=== PATIENT | male | born 1965 | race Caucasian/White ===

== ENCOUNTER 2018-07-26 14:15 | Inpatient (IN) ==
[2018-07-26] MEDS ORDERED: ASPIRIN CHEW 324 MG PO STA (14:37)
[2018-07-26] MEDS ORDERED: ASPIRIN CHEW 324 MG ONE (14:38)
[2018-07-26] MEDS ORDERED: dilTIAZem HCl 125 MG in DEXTROSE 5% 100 ML IV SCH (14:45)
[2018-07-26] MEDS ORDERED: SODIUM CHLORIDE 0.9% 1000ML 1,000 ML IV SCH (14:45)
[2018-07-26] MEDS: dilTIAZem HCl 5 MG/ML 5 ML VIAL IV ONE ×2 (14:46→14:49)
[2018-07-26 15:02] LABS: Basophils # (auto) 0.02 K/uL (0-0.2); Basophils % (auto) 0.3 %; Eosinophils # (auto) 0.09 K/uL (0-0.5); Eosinophils % (auto) 1.4 %; Hemoglobin 13.4 g/dL (14.0-18.0); Immature Granulocytes # (auto) 0.01 K/uL (0.00-0.02); Immature Granulocytes % (auto) 0.2 %; Lymphocytes # (auto) 1.25 K/uL (1.2-3.4); Lymphocytes % (auto) 19.2 %; Mean Corpuscular Hgb Conc 32.7 g/dL (32-36); Mean Corpuscular Volume 88.4 fL (80-100); Mean Platelet Volume 10.5 fL (7.4-10.4); Monocytes # (auto) 0.76 K/uL (0.11-0.59); Monocytes % (auto) 11.7 %; Neutrophils # (auto) 4.39 K/uL (1.4-6.5); Neutrophils % (auto) 67.2 %; Platelet Count 245 K/uL (130-400); RDW Standard Deviation 45.3 fL (36.4-46.3); Red Blood Count 4.64 M/uL (4.7-6.1); White Blood Count 6.52 K/uL (4.8-10.8)
[2018-07-26 15:15] LABS: BUN Creatinine Ratio 20.3 (10-20); Calcium 8.4 mg/dl (8.5-10.1); Creatinine Clr Calc Pharmacy 100.3 ml/min; Est GFR (African American) 84.9; Est GFR (Non-African American) 73.3; Potassium 3.4 mmol/L (3.5-5.1)
--- NOTE | 2018-07-26 15:16 | XRay Report ---
XR chest 1V portable CLINICAL HISTORY: 52 years-old Male presenting with Chest Pain. TECHNIQUE: Portable upright AP view of the chest was obtained. COMPARISON: None. FINDINGS: Cardiac silhouette mildly enlarged. Mild pulmonary vascular prominence. No focal opacity. No large ef fusion or pneumothorax. Osseous structures normal. Upper abdomen normal. IMPRESSION: 1. Cardiomegaly with mild volume overload. No angelina pulmonary edema. Electronically signed by: Donnie Celaya M.D. 07/26/2018 3:15 PM
[2018-07-26 15:20] LABS: Troponin I 0.045 ng/ml (0-0.045)
[2018-07-26 15:27] LABS: INR 1.1 (0.9-1.1); Prothrombin Time 10.7 Seconds (9.0-12.0)
[2018-07-26] MEDS ORDERED: IOVERSOL 100ml IV PRN (15:49)
--- NOTE | 2018-07-26 16:01 | CT Scan Report ---
CT ANGIOGRAM OF THE CHEST CLINICAL HISTORY: Atypical chest pain. Possible pulmonary embolism. COMPARISON STUDY: Chest x-ray dated 07/26/2018 TECHNIQUE: Following the IV administration of 94 mL of Optiray-320, CT angiogram of the thorax was pe rformed from the thoracic inlet to the lung bases utilizing the pulmonary embolus protocol. Images ar e reviewed in the axial, sagittal, and coronal planes. IV contrast was administered without complicat ion. MIP imaging was performed. A dose lowering technique was utilized adhering to the principles of ALARA. CT DOSE: 579.06 mGycm FINDINGS: Mediastinal lymph nodes are the upper limits of normal in size. There is no pathologic axillary or hi lar lymphadenopathy. The ascending thoracic aorta measures 36 mm. There were no pulmonary artery filling defects to indicate acute pulmonary embolism. No pleural effusions are visualized. There is no evidence of focal pulmonary consolidation. There is a solid 4 mm right upper lobe pulmonary nodule as visualized in image #[id number] IMPRESSION: 1. No acute intrathoracic findings 2. No evidence of acute pulmonary embolism. No evidence of focal pulmonary consolidation. 3. Solid 4 mm right upper lobe pulmonary nodule. In a high risk patient, a 12 month follow-up is cons idered optional. Please refer to below summary of Fleischner criteria recommendations for follow-up of incidental CT n odules (Joshua Huang, Guidelines for management of small pulmonary nodules detected on CT scans: A sta tement from the Fleischner Society, Radiology 237: [phone].) SOLID NODULES Solitary nodule size: <6 mm * low risk patients: no follow-up needed * high risk patients: optional CT at 12 months Solitary nodule size: 6-8 mm * low risk patients: follow-up at 6-12 months, then consider further follow-up at 18-24 months * high risk patients: initial follow-up CT at 6-12 months and then at 18-24 months if no change Solitary nodule size: >8 mm * either low or high risk patients - consider follow-up CT at 3 months, and/or CT-PET, and/or biopsy Multiple nodules size: <6 mm * low risk patients: no routine follow-up * high risk patients: optional CT at 12 months Multiple nodules size: 6-8 mm * low risk patients: follow-up at 3-6 months, then consider further follow-up at 18-24 months * high risk patients: follow-up at 3-6 months, then at 18-24 months if no change Multiple nodules size: >8 mm * low risk patients: follow-up at 3-6 months, then consider further follow-up at 18-24 months * high risk patients: follow-up at 3-6 months, then at 18-24 months if no change Note: newly detected indeterminate nodule in persons 35 years of age or older. * low risk patients: minimal or absent history of smoking and/or other known risk factors * high risk patients: history of smoking or of other known risk factors (e.g. first degree relative with lung cancer, or exposure to asbestos, radon, uranium) * if a nodule up to 8 mm is partly solid or is ground glass further follow-up is required after 24 m [address] to exclude possible slow growing adenocarcinoma (CYNDI) SUBSOLID NODULES Solitary pure ground-glass nodule * nodule size <6 mm - no CT follow-up required * nodule size >=6 mm - follow-up CT at 6-12 months, then every 2 years until 5 years Solitary part-solid nodule * nodule size <6 mm - no CT follow-up required * nodule size >=6 mm - follow-up CT at 3-6 months. If unchanged, and solid component remains <6 mm, then annual follow-up for 5 years Multiple subsolid nodules * nodule size <6 mm - follow-up CT at 3-6 months, consider further follow-up at 2 and 4 years if sta ble * nodule size >=6 mm - follow-up CT at 3-6 months, subsequent management based on the most suspiciou s nodule(s) Electronically signed by: Will Negro M.D. 07/26/2018 3:59 PM
[2018-07-26] MEDS ORDERED: SODIUM CHLORIDE 0.9% 1000ML 1,000 ML IV ONE (16:11)
[2018-07-26] MEDS ORDERED: LORazepam 1 MG/2 ML VIAL IV STA (16:11)
--- NOTE | 2018-07-26 17:17 | History & Physical Report ---
Date of Service July 26, 2018 Assessment & Plan (1) Atrial fibrillation with RVR: New onset Possibly related to undx MILDRED No hx of sleep study Overnight pulse ox Will need formal sleep study as outpt Trop neg x1, serials pending ECHO pending Cardiology c/s pending CHADS-VASC score of 0, will hold on anticoagulation for now CTA neg for PE Continue cardizem (2) Abnormal CT scan of lunmm nodule noted on CT Per guidelines in a low risk pt there is no f/u indicated could consider f/u in 12 months (3) DVT prophylaxis: SCDs History of Present Illness Primary Care Provider: Maldonado Kern 52 y/o M who was sent here by PCP for new onset afib. Pt states that over the weekend he noted some palpitations and mild FRANK. This increased yesterday and he noted lightheadedness with the FRANK. No SOB at rest, but he was only able to walk short distances without FRANK onset. He made an appt for PCP today and EKG showed afib, which is a new issue for pt. Pt states that over the years he has had fleeting moments of palpitations that would resolve with rest. No FRANK or lightheadedness with this. Occurrence was very sporadic, maybe once every few months. No chest pain. He has been eating without issue. Pt denies fever, abd pain, n/v/c/d, LE pain or swelling. Pt does admit to snoring which has increased over the years. He is not sure if he wakes up with this, but he states that his frequently wakes him due to snoring. This is a regular occurrence. Pt with recent travel to [place] via plane. No issues with the flight. Allergies Allergy/AdvReac Type Severity Reaction Status Date / Time bee venom protein (honey bee) Allergy Intermediate Itchiness Verified 07/26/18 15:36 and hives Penicillins Allergy Mild Rash Verified 07/26/18 15:36 Home Medications Home Medications Medication Instructions Recorded Confirmed Type No Known Home Medications 07/26/18 07/26/18 History Past Med/Surg History Medical History No chronic diseases present Family History Other Afib Social History Feels Safe at Home: Yes Smoking Status: Never smoker Hx Alcohol Use: Yes Alcohol type: beer and wine Alcohol Intake Frequency Comment: 2 drinks/night with dinner most nights but not every night Hx Substance Use: No Review of Systems Pertinent positives and negatives reviewed in HPI--all others negative Physical Exam 2 Vital Signs (Past 24 Hours): Last Vital Signs Temp 36.9 C 07/26/18 14:23 Pulse 66 07/26/18 16:37 Resp 18 07/26/18 16:11 BP 100/75 07/26/18 16:37 Pulse Ox 99 07/26/18 16:37 Constitutional: WD/WN, vitals as above Eyes: normal visual marsh by confrontation and + anicteric sclerae Neck: normal visual inspection and trachea midline Respiratory: normal respiratory effort, lungs clear to auscultation Cardiovascular: Rate/Rhythm: regular rate and regular rhythm Gastrointestinal (Abdomen): Inspection/Auscultation: abdomen not distended Percussion/Palpation: abdomen soft; abdomen nontender Musculoskeletal: Head/Neck/Chest: normocephalic and head atraumatic negative for edema, peripheral pulses intact Skin: no rashes, warm and dry Neurologic: awake; not confused Speech / Cognition: normal speech Psychiatric: A+Ox3, euthymic affect Code Status & VTE Plan Code Status Full code VTE Prophylaxis Plan VTE Prophylaxis will be ordered: Yes
--- NOTE | 2018-07-26 17:19 | Emergency Department Note ---
Entered by Joana uDnham acting as a scribe for Ricardo Thomas History of Present Illness General Chief complaint: Cardiac Assessment Stated complaint: A FIB Time Seen by Provider: 07/26/18 14:28 Source: patient Mode of arrival: ambulatory Limitations: no limitations History of Present Illness Provider complaint: heart palpitations Onset (ago): day(s) (couple) Location: chest Pain Consistency: + other (persistent) Quality: + other (palpitations) Associated symptoms: + other (Associated symtoms: lightheadedness, resolved shortness of breath. Denies: chest pain, loss of consciousness) The patient is a 52 year old male who presents to the Emergency Room with complaints of persistent heart palpitations beginning a couple days ago. He reports today he was walking a short distance when he began feeling light headed and short of breath. The patient denies loss of consciousness. He denies any current chest pain or difficulty breathing. The patient notes he drove to [place], [place], and back 2 weeks ago. He denies any history of diagnosed heart problems. The patient denies illicit drug use, including cocaine. He notes he drinks 2 alcoholic drinks per night (1 beer, 1 glass of wine). Home Medications Home Medications Medication Instructions Recorded Confirmed Type No Known Home Medications 07/26/18 07/26/18 History Allergies Allergy/AdvReac Type Severity Reaction Status Date / Time bee venom protein (honey bee) Allergy Intermediate Itchiness Verified 07/26/18 15:36 and hives Penicillins Allergy Mild Rash Verified 07/26/18 15:36 Past Med/Surg History Medical History No chronic diseases present Social History Feels Safe at Home: Yes Smoking Status: Never smoker Hx Alcohol Use: Yes Alcohol type: beer and wine Alcohol Intake Frequency Comment: 2 drinks/night with dinner most nights but not every night Hx Substance Use: No Review of Systems See HPI for pertinent positives & negatives. and A total of 10 systems reviewed and were otherwise negative Physical Exam Vital Signs Vital Signs - 24 hr 07/26/18 14:23 07/26/18 14:54 07/26/18 15:01 Temperature 36.9 C Temperature Source Oral Sepsis Recent Fever Within 48 Hours No Sepsis New/Unexplained Change in Mental Status No Sepsis Action Taken by Nursing No Action Required Pulse Rate 80 Pulse Rate [Apical] 117 H Respiratory Rate 18 18 Respiratory Effort / Characteristics Non-Labored Respiratory Depth Normal Respiratory Pattern Blood Pressure 160/105 H Blood Pressure [Right Arm] 106/82 Blood Pressure Mean 123 Blood Pressure Mean [Right Arm] 90 Blood Pressure Position [Right Arm] Pulse Oximetry 99 98 Oxygen Delivery Method Room Air Room Air Room Air 07/26/18 15:19 07/26/18 16:01 07/26/18 16:11 Temperature Temperature Source Sepsis Recent Fever Within 48 Hours Sepsis New/Unexplained Change in Mental Status Sepsis Action Taken by Nursing Pulse Rate Pulse Rate [Apical] 127 H 138 H 66 Respiratory Rate 18 18 18 Respiratory Effort / Characteristics Non-Labored Spontaneous Non-Labored Spontaneous Non-Labored Spontaneous Respiratory Depth Normal Normal Normal Respiratory Pattern Regular Regular Regular Blood Pressure Blood Pressure [Right Arm] 109/80 99/66 L 102/74 Blood Pressure Mean Blood Pressure Mean [Right Arm] 89 77 83 Blood Pressure Position [Right Arm] Sitting Sitting Sitting Pulse Oximetry 99 97 97 Oxygen Delivery Method Room Air Room Air Room Air 07/26/18 16:37 Temperature Temperature Source Sepsis Recent Fever Within 48 Hours Sepsis New/Unexplained Change in Mental Status Sepsis Action Taken by Nursing Pulse Rate Pulse Rate [Apical] 66 Respiratory Rate Respiratory Effort / Characteristics Respiratory Depth Respiratory Pattern Blood Pressure Blood Pressure [Right Arm] 100/75 Blood Pressure Mean Blood Pressure Mean [Right Arm] 83 Blood Pressure Position [Right Arm] Pulse Oximetry 99 Oxygen Delivery Method Room Air GENERAL: He is oriented to person, place, and time. He appears well-developed and well-nourished. He does not appear distressed. HENT: Exam performed. Head: Normocephalic and atraumatic. Right Ear: External ear normal. No mastoid tenderness. Left Ear: External ear normal. No mastoid tenderness. Mouth/Throat: The oropharynx is clear and moist. No trismus in the jaw. No dental abscesses or uvula swelling. No oropharyngeal exudate or tonsillar abscesses. EYES: Conjunctivae and EOM are normal. Pupils are equal, round, and reactive to light. Right eye exhibits no discharge. Left eye exhibits no discharge. No scleral icterus. NECK: Normal range of motion. Neck supple. No JVD present. No spinous process tenderness present. No carotid bruit present. No rigidity. No tracheal deviation and normal range of motion present. No Brudzinski's sign and no Kernig 's sign noted. CV: Tachycardic rate, iregular rhythm, normal heart sounds and intact distal pulses. There is no peripheral edema. Palpable radial pulses bue. PULM/CHEST: Effort normal and breath sounds normal. No respiratory distress. No stridor. He has no wheezes. He has no rales. Chest Wall: He exhibits no tenderness. ABD: The abdomen is soft. Bowel sounds are normal. He has no distension. No mass is present. There is no tenderness. There is no rebound, no guarding, no Maravilla's sign and no tenderness at McBurney's point. Rovsig negative MUSC/SKEL: Normal range of motion. There is no peripheral edema, tenderness or deformity. LYMPH: No cervical adenopathy. NEURO: He is alert and oriented to person, place, and time. He has normal strength. No cranial nerve deficit or sensory deficit. Coordination and gait normal. GCS eye subscore is 4. GCS verbal subscore is 5. GCS motor subscore is 6. cerbellar tests wnl. SKIN: Skin is warm and dry. He is not diaphoretic. PSYCH: He has a normal mood and affect. His behavior is normal. Judgment and thought content normal. Course 1431: Past medical records reviewed. The patient was evaluated in room C10, and a complete history and physical examination were performed.Patient was found to be in Afib with RVR, 20 mg Cardizem bolus given. Patient continued to be in Afib with RVR, his ventricular rate improved on monitor from 150-180 to 120-140 after initial 20 mg bolus. He was given a subsequent 25 mg bolus of Cardizem, which improved heart rate to 80-110 on monitor. Cardizem drip will be started. [place]iv[place] patients recent history of travel and sudden onset of Afib, will conduct a CT of the chest. 1608: Vital signs stable on Cardizem drip. Labs within normal limits. CTA of chest shows no PE. CHADS score does not indicate need for anticoagulation with heparin. Patient given aspirin in ED and admitted into Dr. Jacobson service.I reviewed the patient's case with Dr. Jacobson, [facility] hospitalist. She will evaluate the patient for further management. 1616: While on Cardizem drip at 10 mg an hour the patient converted to a sinus rhythm. Repeat EKG showed sinus rhythm with rate of 69. ME QRS and QTc intervals within normal limits no ST elevation or ST depression. Patient be continued on Cardizem drip as blood pressure stable and tolerating well. Consultations Consultation #1: I reviewed the patient's case with Dr. Jacobson, [facility] hospitalist. She will evaluate the patient for further management. Time: 16:01 Administered Medications Diltiazem HCl 125 mg/ Dextrose 125 mls @ 5 mls/hr IV .Q24H ADY; Protocol Stop: 08/25/18 14:44 Last Titration: 07/26/18 15:36 Dose: 10 mg/hr, 10 mls/hr Admin: 07/26/18 15:00 Dose: 5 mg/hr, 5 mls/hr Ioversol (Optiray 320 100ml) 94 ml IV ONCE PRN PRN Reason: Interaction Checking Stop: 07/30/18 15:48 Last Admin: 07/26/18 15:50 Dose: 94 ml Discontinued Medications Aspirin (Aspirin) 324 mg PO NOW STA Stop: 07/26/18 14:38 Last Admin: 07/26/18 14:48 Dose: 324 mg Aspirin (Aspirin) Confirm Administered Dose 324 mg .ROUTE .STK-MED ONE Stop: 07/26/18 14:39 Last Admin: 07/26/18 14:49 Dose: Not Given Diltiazem HCl (Cardizem) Confirm Administered Dose 25 mg IV .STK-MED ONE Stop: 07/26/18 14:34 Last Admin: 07/26/18 14:49 Dose: 25 mg Admin: 07/26/18 14:46 Dose: 20 mg Sodium Chloride (Nss 1000ml) 1,000 mls @ 999 mls/hr IV .Q1H1M ADY Stop: 07/26/18 15:45 Last Infusion: 07/26/18 16:01 Dose: 0 mls/hr Admin: 07/26/18 14:49 Dose: 999 mls/hr Lorazepam (Ativan) 1 mg in 2 mls @ 2 mls/min IV NOW STA Stop: 07/26/18 16:12 Last Admin: 07/26/18 16:31 Dose: Not Given Sodium Chloride (Nss 1000ml) 1,000 mls @ 999 mls/hr IV .Q1H1M ONE Stop: 07/26/18 17:11 Last Admin: 07/26/18 16:31 Dose: 999 mls/hr Medical Decision Making Medical Records Attestation: I reviewed the patient's medical records. Home Medications Current Medication List: was personally reviewed by me Laboratory Data Attestation: I reviewed the patient's lab results. Result diagrams: 07/26/18 14:35 07/26/18 14:35 Lab Results 07/26/18 07/26/18 07/26/18 Range/Units 14:35 14:35 14:35 WBC 6.52 (4.8-10.8) K/uL RBC 4.64 L (4.7-6.1) M/uL Hgb 13.4 L (14.0-18.0) g/dL Hct 41.0 L (42-52) % MCV 88.4 (80-100) fL MCH 28.9 (25-34) pg MCHC 32.7 (32-36) g/dL RDW Std Deviation 45.3 (36.4-46.3) fL RDW Coeff of Kendra 14.0 (11.5-14.5) % Plt Count 245 (130-400) K/uL MPV 10.5 H (7.4-10.4) fL Immature Gran % (Auto) 0.2 % Neut % (Auto) 67.2 % Lymph % (Auto) 19.2 % [place] % (Auto) 11.7 % Eos % (Auto) 1.4 % Baso % (Auto) 0.3 % Immature Gran # (Auto) 0.01 (0.00-0.02) K/uL Neut # (Auto) 4.39 (1.4-6.5) K/uL Lymph # (Auto) 1.25 (1.2-3.4) K/uL [place] # (Auto) 0.76 H (0.11-0.59) K/uL Eos # (Auto) 0.09 (0-0.5) K/uL Baso # (Auto) 0.02 (0-0.2) K/uL PT 10.7 (9.0-12.0) Seconds INR 1.1 (0.9-1.1) APTT 26.0 (21.0-31.0) Seconds PTT Ratio 1.0 Sodium 138 (136-145) mmol/L Potassium 3.4 L (3.5-5.1) mmol/L Chloride 107 (98-107) mmol/L Carbon Dioxide 28 (21-32) mmol/L Anion Gap 3.0 (3-11) BUN 23 H (7-18) mg/dl Creatinine 1.15 (0.6-1.4) mg/dl Est Cr Clr Drug Dosing 100.3 ml/min Est GFR ( Amer) 84.9 Est GFR (Non-Af Amer) 73.3 BUN/Creatinine Ratio 20.3 H (10-20) Glucose 98 (70-99) mg/dl Calcium 8.4 L (8.5-10.1) mg/dl Troponin I 0.045 (0-0.045) ng/ml Lipase 138 (73-393) U/L Imaging Data Radiologist's Impression: Radiology results as stated below per my review and the radiologist's interpretation: XR chest 1V portable CLINICAL HISTORY: 52 years-old Male presenting with Chest Pain. TECHNIQUE: Portable upright AP view of the chest was obtained. COMPARISON: None. FINDINGS: Cardiac silhouette mildly enlarged. Mild pulmonary vascular prominence. No focal opacity. No large effusion or pneumothorax. Osseous structures normal. Upper abdomen normal. IMPRESSION: 1. Cardiomegaly with mild volume overload. No angelina pulmonary edema. Electronically signed by: Donnie Celaya M.D. 07/26/2018 3:[address] ANGIOGRAM OF THE CHEST CLINICAL HISTORY: Atypical chest pain. Possible pulmonary embolism. COMPARISON STUDY: Chest x-ray dated 07/26/2018 TECHNIQUE: Following the IV administration of 94 mL of Optiray-320, CT angiogram of the thorax was performed from the thoracic inlet to the lung bases utilizing the pulmonary embolus protocol. Images are reviewed in the axial, sagittal, and coronal planes. IV contrast was administered without complication. MIP imaging was performed. A dose lowering technique was utilized adhering to the principles of ALARA. CT DOSE: 579.06 mGycm FINDINGS: Mediastinal lymph nodes are the upper limits of normal in size. There is no pathologic axillary or hilar lymphadenopathy. The ascending thoracic aorta measures 36 mm. There were no pulmonary artery filling defects to indicate acute pulmonary embolism. No pleural effusions are visualized. There is no evidence of focal pulmonary consolidation. There is a solid 4 mm right upper lobe pulmonary nodule as visualized in image # [id number] IMPRESSION: 1. No acute intrathoracic findings 2. No evidence of acute pulmonary embolism. No evidence of focal pulmonary consolidation. 3. Solid 4 mm right upper lobe pulmonary nodule. In a high risk patient, a 12 month follow-up is considered optional. Please refer to below summary of Fleischner criteria recommendations for follow- up of incidental CT nodules (Joshua Huang, Guidelines for management of small pulmonary nodules detected on CT scans: A statement from the Fleischner Society , Radiology 237: [phone].) SOLID NODULES Solitary nodule size: <6 mm * low risk patients: no follow-up needed * high risk patients: optional CT at 12 months Solitary nodule size: 6-8 mm * low risk patients: follow-up at 6-12 months, then consider further follow- up at 18-24 months * high risk patients: initial follow-up CT at 6-12 months and then at 18-24 months if no change Solitary nodule size: >8 mm * either low or high risk patients - consider follow-up CT at 3 months, and/or CT-PET, and/or biopsy Multiple nodules size: <6 mm * low risk patients: no routine follow-up * high risk patients: optional CT at 12 months Multiple nodules size: 6-8 mm * low risk patients: follow-up at 3-6 months, then consider further follow-up at 18-24 months * high risk patients: follow-up at 3-6 months, then at 18-24 months if no change Multiple nodules size: >8 mm * low risk patients: follow-up at 3-6 months, then consider further follow-up at 18-24 months * high risk patients: follow-up at 3-6 months, then at 18-24 months if no change Note: newly detected indeterminate nodule in persons 35 years of age or older. * low risk patients: minimal or absent history of smoking and/or other known risk factors * high risk patients: history of smoking or of other known risk factors (e.g. first degree relative with lung cancer, or exposure to asbestos, radon, uranium) * if a nodule up to 8 mm is partly solid or is ground glass further follow-up is required after 24 months to exclude possible slow growing adenocarcinoma (CYNDI ) SUBSOLID NODULES Solitary pure ground-glass nodule * nodule size <6 mm - no CT follow-up required * nodule size >=6 mm - follow-up CT at 6-12 months, then every 2 years until 5 years Solitary part-solid nodule * nodule size <6 mm - no CT follow-up required * nodule size >=6 mm - follow-up CT at 3-6 months. If unchanged, and solid component remains <6 mm, then annual follow-up for 5 years Multiple subsolid nodules * nodule size <6 mm - follow-up CT at 3-6 months, consider further follow-up at 2 and 4 years if stable * nodule size >=6 mm - follow-up CT at 3-6 months, subsequent management based on the most suspicious nodule(s) Electronically signed by: Will Negro M.D. 07/26/2018 3:59 PM ECG Data Additional Comments: 1422: Afib with RVR. Rate of 155. QRS and QTC within normal limits. PVCs present. No ST elevation. No ST depression. 1440: Afib with RVR. Rate of 129. QRS and QTC within normal limits. No ST elevation. No ST depression. 1445: Aflutter. Rate of 119. QRS and QTC within normal limits. No ST elevation. No ST depression. 1446: Aflutter. Rate of 103. QRS and QTC within normal limits. No ST elevation. No ST depression. 1616: Normal sinus rhythm. Rate of 69. ME, QRS, QTC within normal limits. No ST elevation. No ST depression. Blood Pressure Blood Pressure Findings: Normal blood pressure Blood Pressure Disposition: did not require urgent referral MDM Narrative 1431: Past medical records reviewed. The patient was evaluated in room C10, and a complete history and physical examination were performed.Patient was found to be in Afib with RVR, 20 mg Cardizem bolus given. Patient continued to be in Afib with RVR, his ventricular rate improved on monitor from 150-180 to 120-140 after initial 20 mg bolus. He was given a subsequent 25 mg bolus of Cardizem, which improved heart rate to 80-110 on monitor. Cardizem drip will be started. [place] patients recent history of travel and sudden onset of Afib, will conduct a CT of the chest. 1608: Vital signs stable on Cardizem drip. Labs within normal limits. CTA of chest shows no PE. CHADS score does not indicate need for anticoagulation with heparin. Patient given aspirin in ED and admitted into Dr. Jacobson service.I reviewed the patient's case with Dr. Jacobson, [facility] hospitalist. She will evaluate the patient for further management. 1616: While on Cardizem drip at 10 mg an hour the patient converted to a sinus rhythm. Repeat EKG showed sinus rhythm with rate of 69. ME QRS and QTc intervals within normal limits no ST elevation or ST depression. Patient be continued on Cardizem drip as blood pressure stable and tolerating well. Impression & Plan Atrial fibrillation with RVR Critical Care Time I have personally spent greater than 50 minutes of critical care time in the direct management of this patient. This includes bedside care, interpretation of diagnostic studies, and testing, discussion with consultants, patient, and family members, and other required patient management activities. This 50 minutes is in excess of all separately billable procedures. Critical Care Time: Yes Total Critical Care Time: 50 Discharge Plan Visit Data Chief Complaint: Cardiac Assessment Stated Complaint: A FIB ED Provider: Ricardo Thomas Discharge Problem: Atrial fibrillation with RVR Forms Stand Alone Forms: My [facility] [employer] Prescriptions Prescriptions: No Action No Known Home Medications RF: 0 The scribe's documentation has been prepared under my direction and personally reviewed by me in its entirety. I confirm that the note above accurately reflects all work, treatment, procedures, and medical decision making performed by me.
[2018-07-26] MEDS ORDERED: ACETAMINOPHEN 325 MG TAB PO PRN (20:56)
[2018-07-26] MEDS ORDERED: ONDANSETRON INJ 2 MG/ML 2 ML VIAL IV PRN (20:56)
[2018-07-26] MEDS ORDERED: MAGNESIUM HYDROXIDE SUSP 30 ML UDC PO PRN (20:56)
[2018-07-26 21:49] LABS: Troponin I 0.041 ng/ml (0-0.045)
--- NOTE | 2018-07-27 17:20 | Cardiology Consultation ---
Date of Consultation July 27, 2018 Assessment & Plan (1) Atrial fibrillation with RVR: Patient presented with atrial fibrillation and rapid ventricular response. Is very likely that the rapid ventricular rates produce the symptoms of dyspnea especially with exertion. What is less clear as the duration of his atrial fibrillation. He seems to have had a sense of palpitation for a few days leading up to his he admission. It is very possible that he has had atrial fibrillation for a few days in addition to the rapid ventricular rates did develop an element of mild pulmonary vascular congestion. He seems to have had resolution of his symptoms with return to sinus rhythm. The etiology of his atrial fibrillation is unclear. There is some concern that he has an element of sleep apnea based on a history of snoring. He did undergo oximetry last night but I am unaware of the results. Certainly sleep apnea has been associated with atrial fibrillation and this possible etiology should be explored. He is not markedly obese. He is relatively young age. He does not have a history of hypertension. He has no derangement in thyroid function. He is not taking any medications which are likely to produce atrial fibrillation. He does not endorse heavy alcohol use. We discussed several options for treatment. He could take a daily antiarrhythmic medication in an attempt to prevent additional episodes. However , he generally has infrequent episodes most of which have been quite brief. I did not recommend a daily antiarrhythmic at this point. I do not believe a daily rate control agent is necessary for the same reasons. Without a history of hypertension or indication for antihypertensives I do not think he benefits from taking diltiazem or beta-lin daily. He may benefit from taking flecainide on an as-needed basis. He has preserved LV systolic function with a structurally normal heart. He does not have other cardiac symptoms or history. I did describe the utility of taking 300 mg of flecainide for an episode of atrial fibrillation that lasts more than 10 or 15 minutes. With respect to anticoagulation, his chads vas score is truly 0. As such, he has lone atrial fibrillation and does not require any anticoagulation either with systemic anticoagulants or aspirin. Present on Admission?: Yes History of Present Illness Reason for Consultation: Atrial fibrillation Requesting Physician: Kavon Attending Physician: Kota Dee History of Present Illness The patient is a 52-year-old gentleman without a known history of audio vascular disease who began to experience episodes of palpitations and progressive shortness of breath over the past few days. Patient states that yesterday he was markedly dyspneic with minimal exertion. This represented a significant change in his physical ability. Based on the progressive nature of his symptoms and the presence of persistent palpitations he contacted his primary care physician who recommended an emergency room of the patient presented to the emergency room he was found to be in atrial fibrillation with rapid ventricular rate. Patient was administered diltiazem and scheduled for admission. He subsequently returned to a sinus rhythm. The patient reports a long history of transient palpitation. He states that for approximately 12 years he has experienced very brief episodes of an irregular heartbeat. These episodes tend to last just a few minutes and do not produce other symptoms. He cannot recall other episodes resulting in significant shortness of breath, dizziness or chest discomfort. He has not had chest discomfort or dizziness recently. He cannot recall an episode of syncope. He does not report any other recent illnesses. Currently patient is feeling well. He is ambulatory around his room without significant dyspnea. He has no symptoms at rest. Allergies Allergy/AdvReac Type Severity Reaction Status Date / Time bee venom protein (honey bee) Allergy Intermediate Itchiness Verified 07/26/18 15:36 and hives Penicillins Allergy Mild Rash Verified 07/26/18 15:36 Home Medications Home Medications Medication Instructions Recorded Confirmed Type No Known Home Medications 07/26/18 07/26/18 History flecainide 300 mg PO ONCE #1 tab 07/27/18 Rx Patient History Medical History No chronic diseases present Family History Other Afib Social History Current Living Situation: Spouse Other Information That Helps Us Care for You: No Feels Safe at Home: Yes Safety Concerns: Feels Safe At This Time Smoking Status: Never smoker Hx Alcohol Use: Yes Alcohol type: beer and wine Alcohol Intake Frequency: 0-2 drinks per day Alcohol Intake Frequency Comment: 2 drinks/night with dinner most nights but not every night Hx Substance Use: No Beliefs That Will Affect Care: None Preferred Language: Romanian Review of Systems Complete. Pertinent positives listed in the HPI. NO recent fevers. No abdominal complaints. Physical Exam 2 Vital Signs (Past 24 Hours): Last Vital Signs Temp 36.7 C 07/27/18 12:46 Pulse 73 07/27/18 12:46 Resp 18 07/27/18 12:46 BP 142/90 H 07/27/18 12:46 Pulse Ox 99 07/27/18 12:46 Physical Exam: The patient is alert and oriented. Mood and affect appeared normal. He answered all questions appropriately. HEENT: Pupils are equal and reactive to light and accommodation. Extraocular movements are intact. The sclerae are anicteric. Neuro: Cranial nerves intact Neck: Patient's neck is supple. He has palpable carotid pulses bilaterally without bruits on auscultation. There is no evidence of jugular venous distention. The thyroid is not enlarged. Lungs: Clear to auscultation bilaterally. He has good air movement without use of accessory muscles. No rales wheezes or rhonchi. Cardiac: Heart demonstrates a regular rate and rhythm. Normal S1 and S2. No murmurs on examination. Pulses: The patient has palpable radial pulses bilaterally that are equal in intensity Extremities: There was no evidence of hypoperfusion. There is no cyanosis or clubbing. There is no edema. Skin: I did not appreciate any rashes on examination today. Atrial fibrillation Results & Data Laboratory Results Abnormal Lab Results 07/26/18 07/26/18 07/27/18 17:44 21:02 02:51 Troponin I 0.050 H* 0.041 0.038 TSH 2.230 Diagnostic Findings Initial chest x-ray did not demonstrate any acute cardiopulmonary abnormalities CT scan of the chest did not reveal any evidence of pulmonary embolus. Echocardiogram performed today revealed preserved LV systolic function without significant valvular abnormalities or chamber enlargement ECG Additional Comments: Initial EKG demonstrated Atrial fibrillation with RVR.
== END 2018-07-27 13:08 | disposition home or self-care (01) | DRG 310 ==
LOC: ED 14:15 → SUATTDRO 17:14 → 2S 17:14